=== PATIENT | male | born 1990 | race Caucasian/White ===

== ENCOUNTER 2021-04-28 17:49 | Emergency (ER) | payer OTHER ==
[~2021-04-28] VITALS: Ht 177.8 cm; Wt 140.6 kg
[2021-04-28] MEDS ORDERED: PROAIR HFA8.5 GM INH (18:24)
[2021-04-28 22:54] LABS: ABSOLUTE BASOPHILS 0.1 thou/uL (0.0-0.2); ABSOLUTE EOSINOPHILS 0.7 thou/uL (0.0-0.7); ABSOLUTE LYMPHOCYTES 3.2 thou/uL (0.8-5.3); ABSOLUTE MONOCYTES 0.5 thou/uL (0.0-1.2); ABSOLUTE NEUTROPHILS 5.9 thou/uL (1.6-8.1); BASOPHILS 0.6 %; HEMATOCRIT 49.2 % (42.0-52.0); HEMOGLOBIN 16.2 gm/dL (14.0-18.0); LYMPHOCYTES 30.7 %; MCH 28.1 pg (26.0-34.0); MPV 9.9 fl. (7.2-11.1); NUCLEATED RBCS 0 /100WBC; PLATELET COUNT* 248 thou/uL (150-400); POLYS 56.7 %; RBC 5.78 mil/uL (4.50-6.00); RDW-CV 13.7 % (10.5-14.5); WBC 10.3 thou/uL (4.0-11.0)
[2021-04-28 22:56] LABS: CALCIUM 8.9 mg/dL (8.5-10.1); POTASSIUM 3.9 mmol/L (3.5-5.1)
[2021-04-28 23:01] LABS: INFLUENZA A ANTIGEN Negative (Negative); INFLUENZA B ANTIGEN Negative (Negative)
[2021-04-28 23:03] LABS: ALBUMIN 3.9 g/dL (3.4-5.0); TOTAL BILIRUBIN 0.4 mg/dL (<0.1-1.0); TOTAL PROTEIN 8.5 g/dL (6.4-8.2)
[2021-04-28] MEDS ORDERED: ACETAMINOPHEN-1 EAC2 PO (23:29)
[2021-04-28 23:30] VITALS: BP 147/102
[2021-04-28] MEDS ORDERED: VENTOLIN HFA 1818 GM INH (23:30)
[2021-04-28] MEDS ORDERED: ALBUTEROL2.5 MG/31 INH (23:30)
--- NOTE | 2021-04-29 09:31 | EKG ---
[place] [address] ELECTROCARDIOGRAM REPORT Name: JAYDEN CUEVAS Room: [facility]#: [id number] Admission: 04/28/21 Attend Phys: Discharge: 04/28/21 Date of : 86 Date of Service: 04/28/212243 Report #: [id number] THIS REPORT FOR: //name// [facility] ED Test Date: 2021-04-28 Test Time: 22:44:20 Pat Name: JAYDEN CUEVAS Department: Room: Gender: Director [place]: [place] : 1990 Requested By: Pat Cantrell Order Number: [id number] MD: Beto Odom Measurements Intervals [place] Rate: 86 P: 44 MO: 180 QRS: 70 QRSD: 90 T: 66 QT: 355 QTc: 425 Interpretive Statements Sinus rhythm ST elev, probable normal early repol pattern No previous ECG available for comparison Electronically Signed On 04-29-2021 9:31:33 [employer] by Beto Odom [email or web address] <ELECTRONICALLY SIGNED> By: Beto Odom MD, [facility] 04/29/2131 43 43 Beto Odom MD, [facility] /EPI
== END 2021-04-28 23:30 | disposition home or self-care (01) ==
LOC: M.ERS 17:49
PROVIDERS: Nurse Practitioner Family
DX: J06.9 Acute upper respiratory infection, unspecified (principal); Z20.822 Contact with and (suspected) exposure to COVID-19; R09.1 Pleurisy; I10 Essential (primary) hypertension; E11.9 Type 2 diabetes mellitus without complications; Z79.899 Other long term (current) drug therapy